=== PATIENT | female | born 1980 | race Caucasian/White ===

== ENCOUNTER 2018-06-24 13:59 | Inpatient (IN) | payer MEDICAID, OTHER ==
--- NOTE | 2018-06-24 14:17 | EDPHY ---
H & P Stated Complaint: D&C/yesterday @[facility] - Personal History LMP (Females 10-55): Unknown Current Tetanus/Diphtheria Vaccine: Yes - Medical/Surgical History Hx Asthma: No Hx Chronic Respiratory Disease: No Hx Diabetes: No Hx Cardiac Disease: No Hx Renal Disease: No Hx Cirrhosis: No Hx Alcoholism: No Other PMH: Denies - Social History Smoking Status: Never smoked <Ben Gomez A - Last Filed: 06/24/18 15:01> <Lefty Nichols S - Last Filed: 06/24/18 18:07> Time Seen by Provider: 06/24/18 14:17 Constitutional: Initial Vital Signs Temperature (C) 37.1 C 06/24/18 14:03 Heart Rate 62 06/24/18 14:03 Respiratory Rate 18 06/24/18 14:03 Blood Pressure 96/40 L 06/24/18 14:03 O2 Sat (%) 100 06/24/18 14:03 Allergies/Adverse Reactions: latex Allergy (Verified 06/24/18 14:06) Home Medications: Medication Instructions Recorded NK [No Known Home Meds] 06/24/18 Medical Decision Making - Diagnostics Imaging: Discussed imaging studies w/ call worker person Radiologist, I viewed and interpreted images myself <Ben Gomez - Last Filed: 06/24/18 15:01> - Diagnostics Imaging: Discussed imaging studies w/ call worker person Radiologist Consult/Admit Bed Type: Dr. Martin 0830 <Lefty Nichols S - Last Filed: 06/24/18 18:07> - Diagnostics Imaging Results: Imaging Impressions Chest/Thorax CTA 06/24/18 14:25 Impression: 1. Suboptimal opacification of the pulmonary artery without central or segmental pulmonary embolus. 2. Heterogeneous, partially calcified right thyroid nodule measuring 5.0 x 3.9 cm. This lesion exhibits mass effect on the trachea and esophagus and narrows the left brachiocephalic vein. Recommend fine needle aspiration to exclude malignancy. Findings and recommendations discussed with Dr. Nichols at 2765, 06/24/2018. ED Course/Re-evaluation: CHIEF COMPLAINT: Chest pain, dyspnea, recent D&E HISTORY OF PRESENT ILLNESS: The patient is a 37 y/o female arriving with her family member complaining of chest pain and difficulty breathing onset today. She underwent a dilation and evacuation procedure yesterday at [facility] for a spontaneous miscarriage. She was discharged home and last night around midnight became restless and complained of abdominal discomfort and hip pressure. She woke this morning with associated chest pain and took extra strength Tylenol with no alleviation. Throughout the day she's had associated difficulty breathing and feels globally weak. She's also had right calf pain. Her doctor advised her to come to the ED with concern for an embolus. She denies fever, headache, dizziness, difficulty with balance or unilateral weakness, vomiting, diarrhea, urinary complaints. She is typically healthy, no history of respiratory or cardiac diseases. REVIEW OF SYSTEMS: A comprehensive 10 system review of systems is otherwise negative aside from elements mentioned in the history of present illness and medical decision making. PHYSICAL EXAM: HR, BP, O2 Sat, RR. Temp noted General Appearance: Alert, well hydrated, appropriate, and non-toxic appearing. Head: Atraumatic without scalp tenderness or obvious injury Eyes: Pupils equal, round, reactive to light and accommodation, EOMI, no trauma , no injection. Nose: Atraumatic, no rhinorrhea, clear. Throat: Mucus membranes moist. Neck: Supple, nontender, no lymphadenopathy. Respiratory: No retractions, no distress, no wheezes, and no accessory muscle use. Lungs are clear to auscultation bilaterally. Cardiovascular: Regular rate and rhythm, no murmurs, rubs, or gallops. Good capillary refill all extremities. Gastrointestinal: Abdomen is soft, nontender, non-distended, no masses, no rebound, no guarding, no peritoneal signs. Musculoskeletal: Right calf tenderness. Normal active ROM of all extremities, atraumatic. Neurological: Alert, appropriate, and interactive. The patient has non-focal cranial nerves, motor, sensory, and cerebellar exam. Skin: No rashes, good turgor, no nodules on palpation. Past medical history: Denies Past surgical history: D&E for spontaneous miscarriage 06/23/18 Family history: Noncontributory Social history: Family at bedside. Lives in [place]. . DIAGNOSTICS/PROCEDURES/CRITICAL CARE TIME: Chest CTA: pending at shift change. The 12 lead EKG was interpreted by myself. Sinus mechanism, no ischemia, normal intervals. See hard copy and/or "tracemaster" electronic copy for interpretation. DIFFERENTIAL DIAGNOSIS: The differential diagnosis for the patient's chest pain included but was not limited to myocardial ischemia, pulmonary embolus, chest wall pain, pleural inflammation, and pulmonary infectious causes. MEDICAL DECISION MAKING: This is a healthy 37 y/o female who underwent a D&E for a spontaneous miscarriage yesterday and presents today with chest pain, dyspnea, hip pressure , and global weakness. She has right calf tenderness on exam. Concern for embolus. Plan for IV, labs, chest CTA. 1L IV NS and 324mg PO aspirin administered. Patient care signed out to Dr. Nichols at shift change pending labs and imaging results. (Ben Gomez) Other Provider: Care assumed at 3:[address] With plan to CT angiography of the chest discharge if negative. 1645: CTA negative per Dr. Guillen, does have right thyroid nodule that requires follow-up. Discussed with the patient and family. She says she is too weak to walk, but does have pain and has difficulty abducting her arm over her clavicle at the shoulder because of pain in her chest. Got her up to try and walk and stand at the side of bed and she is unstable. She has diffuse myalgias. CPK is pending. Toradol 15 mg IV with normal creatinine. Plan for admission for supportive care and further evaluation. Differential includes but not limited to post anesthesia weakness, myopathy, other neurologic. (Lefty Nichols) - Data Points Laboratory Results: Laboratory Results 06/24/18 15:08 06/24/18 15:08 06/24/18 06/24/18 06/24/18 15:15 15:12 15:08 WBC RBC Hgb POC Hgb 13.9 gm/dL gm/dL (12.6-16.3) Hct POC Hct 41 % % (38-47) MCV MCH MCHC RDW Plt Count MPV Neut % (Auto) Lymph % (Auto) [place] % (Auto) Eos % (Auto) Baso % (Auto) Nucleat RBC Rel Count Absolute Neuts (auto) Absolute Lymphs (auto) Absolute Monos (auto) Absolute Eos (auto) Absolute Basos (auto) Absolute Nucleated RBC Immature Gran % Immature Gran # POC Sodium 143 mEq/L mEq/L (135-145) Sodium POC Potassium 3.4 mEq/L mEq/L (3.3-5.0) Potassium POC Chloride 105 mEq/L mEq/L (97-110) Chloride Carbon Dioxide POC Total CO2 23 mEq/L mEq/L (22-31) Anion Gap POC BUN 10 mg/dL mg/dL (7-23) BUN Creatinine POC Creatinine 0.6 mg/dL mg/dL (0.6-1.0) Estimated GFR Glucose POC Glucose 84 mg/dL mg/dL (70-100) Calcium Creatine Kinase 120 IU/L IU/L (0-156) POC Troponin I 0.00 ng/mL ng/mL (0.00-0.08) NT-Pro-B Natriuret Pep 06/24/18 06/24/18 15:08 15:08 WBC 6.09 10^3/uL 10^3/uL (3.80-9.50) RBC 4.44 10^6/uL 10^6/uL (4.18-5.33) Hgb 14.1 g/dL g/dL (12.6-16.3) POC Hgb Hct 41.8 % % (38.0-47.0) POC Hct MCV 94.1 fL fL (81.5-99.8) MCH 31.8 pg pg (27.9-34.1) MCHC 33.7 g/dL g/dL (32.4-36.7) RDW 14.6 % % (11.5-15.2) Plt Count 148 10^3/uL L 10^3/uL (150-400) MPV 9.6 fL fL (8.7-11.7) Neut % (Auto) 61.6 % % (39.3-74.2) Lymph % (Auto) 29.6 % % (15.0-45.0) [place] % (Auto) 6.2 % % (4.5-13.0) Eos % (Auto) 1.3 % % (0.6-7.6) Baso % (Auto) 0.5 % % (0.3-1.7) Nucleat RBC Rel Count 0.0 % % (0.0-0.2) Absolute Neuts (auto) 3.75 10^3/uL 10^3/uL (1.70-6.50) Absolute Lymphs (auto) 1.80 10^3/uL 10^3/uL (1.00-3.00) Absolute Monos (auto) 0.38 10^3/uL 10^3/uL (0.30-0.80) Absolute Eos (auto) 0.08 10^3/uL 10^3/uL (0.03-0.40) Absolute Basos (auto) 0.03 10^3/uL 10^3/uL (0.02-0.10) Absolute Nucleated RBC 0.00 10^3/uL 10^3/uL (0-0.01) Immature Gran % 0.8 % % (0.0-1.1) Immature Gran # 0.05 10^3/uL 10^3/uL (0.00-0.10) POC Sodium Sodium 138 mEq/L mEq/L (135-145) POC Potassium Potassium 3.5 mEq/L mEq/L (3.5-5.2) POC Chloride Chloride 109 mEq/L mEq/L (97-110) Carbon Dioxide 23 mEq/l mEq/l (22-31) POC Total CO2 Anion Gap 6 mEq/L mEq/L (6-14) POC BUN BUN 13 mg/dL mg/dL (7-23) Creatinine 0.6 mg/dL mg/dL (0.6-1.0) POC Creatinine Estimated GFR > 60 Glucose 83 mg/dL mg/dL (70-100) POC Glucose Calcium 8.9 mg/dL mg/dL (8.5-10.4) Creatine Kinase POC Troponin I NT-Pro-B Natriuret Pep 123 pg/mL pg/mL (0-125) Medications Given: Discontinued Medications Aspirin (Aspirin) 324 mg PO EDNOW ONE Stop: 06/24/18 14:25 Last Admin: 06/24/18 14:49 Dose: 324 mg Sodium Chloride (Ns) 1,000 mls @ 0 mls/hr IV ONCE ONE; Wide Open PRN Reason: Protocol Stop: 06/24/18 14:25 Last Admin: 06/24/18 14:52 Dose: 1,000 mls Point of Care Test Results: Chemistry 06/24/18 06/24/18 15:15 15:12 POC Sodium 143 mEq/L mEq/L (135-145) POC Potassium 3.4 mEq/L mEq/L (3.3-5.0) POC Chloride 105 mEq/L mEq/L (97-110) POC Total CO2 23 mEq/L mEq/L (22-31) POC BUN 10 mg/dL mg/dL (7-23) POC Creatinine 0.6 mg/dL mg/dL (0.6-1.0) POC Glucose 84 mg/dL mg/dL (70-100) POC Troponin I 0.00 ng/mL ng/mL (0.00-0.08) ISTAT H&H 06/24/18 15:15 POC Hgb 13.9 gm/dL gm/dL (12.6-16.3) POC Hct 41 % % (38-47) Departure <Ben Gomez - Last Filed: 06/24/18 15:01> <Lefty Nichols - Last Filed: 06/24/18 18:07> - Departure Disposition: [facility] Inpatient Acute Clinical Impression: Chest pain, Muscle weakness Condition: Good Report Scribed for: Ben Gomez Report Scribed by: aMrilou Celis Date of Report: 06/24/18 Time of Report: 14:27 <Ben Gomez - Last Filed: 06/24/18 15:01>
[2018-06-24] MEDS ORDERED: NS 1,000 ML IV ONE (14:24)
[2018-06-24] MEDS ORDERED: ASPIRIN 81 MG CHEWABLE TAB PO ONE (14:24)
[2018-06-24] MEDS ORDERED: IOHEXOL 350mgI/ML (OMNIPAQUE) 150 ML BTL IV ONE (14:46)
--- NOTE | 2018-06-24 15:02 | CPEKG ---
Test Reason : OPEN Blood Pressure : / mmHG Vent. Rate : 059 BPM Atrial Rate : 059 BPM P-R Int : 160 ms QRS Dur : 092 ms QT Int : 436 ms P-R-T Axes : 054 070 034 degrees QTc Int : 432 ms Sinus rhythm Confirmed by Lefty Nichols ([id number]) on 06/24/2018 3:02:14 PM Referred By: Lefty Nichols Confirmed By:Lefty Nichols
[2018-06-24 15:23] LABS: PLATELET COUNT 148 10^3/uL (150-400)
[2018-06-24] MEDS ORDERED: KETOROLAC 30 MG/1 ML SDV IVP ONE (17:01)
[2018-06-24 17:06] LABS: CREATINE KINASE 120 IU/L (0-156)
[2018-06-24] MEDS ORDERED: KETOROLAC 15 MG/1 ML SDV ONE (18:55)
[2018-06-24] MEDS ORDERED: LORazepam 0.5 MG TAB PO PRN (18:57)
[2018-06-24] MEDS ORDERED: ONDANSETRON DISINTEGRATING 4 MG TAB PO PRN (18:57)
[2018-06-24] MEDS ORDERED: ONDANSETRON 4 MG/2 ML VIAL IVP PRN (18:57)
[2018-06-24] MEDS ORDERED: ACETAMINOPHEN 325 MG TAB PO PRN (18:57)
--- NOTE | 2018-06-24 19:01 | PDGENHP ---
History and Physical - Chief Complaint chest pain, shortness of breath - History of Present Illness 37yo F presents with shortness of breath, generalized weakness and inability to ambulate. She had a D+C for a spontaneous miscarriage yesterday at [facility]. This was done under LMA anesthesia although she is unsure what exact medications she received. She was discharged later in the morning in her normal state of health. She did some errands with her before returning home. Last night she developed pain in her hips/lower back and abdominal discomfort. She woke up this morning with intense chest pressure, shortness of breath, neck pain, and generalized weakness. She was having trouble walking due to the weakness. She called her physician who recommended she come in for evaluation. In the ED, she had a CTA of her chest which was negative for PE. She was unable to ambulate safely and is being admitted for further evaluation. She is currently having intense pain in her neck, left arm, and lower back. Case discussed with ED physician Lefty Nichols. History Information - Allergies/Home Medication List Allergies/Adverse Reactions: latex Allergy (Verified 06/24/18 14:06) Home Medications: Acetaminophen [Pain Reliever] 1,000 mg PO Q6H PRN 06/24/18 [Last Taken 06/24/18 0900] I have personally reviewed and updated: family history, medical history, social history, surgical history - Past Medical History no pertinent PMH - Surgical History Additional surgical history: D+C x2 - Family History Additional family history: No family history of adverse reactions to anesthesia - Social History Smoking Status: Never smoked Alcohol Use: None Drug Use: None Additional social history: Lives with . Review of Systems Review of Systems: ROS: 10pt was reviewed & negative except for what was stated in HPI & below Physical Exam Physical Exam: Temp Pulse Resp BP Pulse Ox 37.1 C 65 18 99/58 L 97 06/24/18 14:03 06/24/18 18:15 06/24/18 18:15 06/24/18 18:15 06/24/18 18:15 Constitutional: uncomfortable Eyes: PERRL, anicteric sclera Ears, Nose, Mouth, Throat: moist mucous membranes Cardiovascular: regular rate and rhythym, no murmur, rub, or gallop, No edema Respiratory: no respiratory distress, no rales or rhonchi, clear to auscultation Gastrointestinal: normoactive bowel sounds, soft, non-tender abdomen, no palpable masses Genitourinary: no bladder fullness, no bladder tenderness Skin: warm, normal color, no rashes or abrasions, no fluctuance, no induration, No mottled Neurologic: AAOx3, sensation intact bilaterally, CN II-XII Intact, other (5/5 strenght in RUE and LLE, difficult to assess strenght in LUE and RLE due to pain ) Psychiatric: interacting appropriately Lab Data & Imaging Review 06/24/18 15:08 06/24/18 15:08 WBC 6.09 10^3/uL (3.80-9.50) 06/24/18 15: RBC 4.44 10^6/uL (4.18-5.33) 06/24/18 15:08 Hgb 14.1 g/dL (12.6-16.3) 06/24/18 15:08 POC Hgb 13.9 gm/dL (12.6-16.3) 06/24/18 15:15 Hct 41.8 % (38.0-47.0) 06/24/18 15:08 POC Hct 41 % (38-47) 06/24/18 15: MCV 94.1 fL (81.5-99.8) 06/24/18 15:08 MCH 31.8 pg (27.9-34.1) 06/24/18 15:08 MCHC 33.7 g/dL (32.4-36.7) 06/24/18 15: RDW 14.6 % (11.5-15.2) 06/24/18 15:08 Plt Count 148 10^3/uL (150-400) L 06/24/18 15:08 MPV 9.6 fL (8.7-11.7) 06/24/18 15:08 Neut % (Auto) 61.6 % (39.3-74.2) 06/24/18 15:08 Lymph % (Auto) 29.6 % (15.0-45.0) 06/24/18 15:08 [place] % (Auto) 6.2 % (4.5-13.0) 06/24/18 15:08 Eos % (Auto) 1.3 % (0.6-7.6) 06/24/18 15:08 Baso % (Auto) 0.5 % (0.3-1.7) 06/24/18 15:08 Nucleat RBC Rel Count 0.0 % (0.0-0.2) 06/24/18 15:08 Absolute Neuts (auto) 3.75 10^3/uL (1.70-6.50) 06/24/18 15:08 Absolute Lymphs (auto) 1.80 10^3/uL (1.00-3.00) 06/24/18 15:08 Absolute Monos (auto) 0.38 10^3/uL (0.30-0.80) 06/24/18 15:08 Absolute Eos (auto) 0.08 10^3/uL (0.03-0.40) 06/24/18 15:08 Absolute Basos (auto) 0.03 10^3/uL (0.02-0.10) 06/24/18 15:08 Absolute Nucleated RBC 0.00 10^3/uL (0-0.01) 06/24/18 15:08 Immature Gran % 0.8 % (0.0-1.1) 06/24/18 15:08 Immature Gran # 0.05 10^3/uL (0.00-0.10) 06/24/18 15:08 POC Sodium 143 mEq/L (135-145) 06/24/18 15:15 Sodium 138 mEq/L (135-145) 06/24/18 15:08 POC Potassium 3.4 mEq/L (3.3-5.0) 06/24/18 15:15 Potassium 3.5 mEq/L (3.5-5.2) 06/24/18 15:08 POC Chloride 105 mEq/L (97-110) 06/24/18 15:15 Chloride 109 mEq/L (97-110) 06/24/18 15:08 Carbon Dioxide 23 mEq/l (22-31) 06/24/18 15:08 POC Total CO2 23 mEq/L (22-31) 06/24/18 15:15 Anion Gap 6 mEq/L (6-14) 06/24/18 15:08 POC BUN 10 mg/dL (7-23) 06/24/18 15:15 BUN 13 mg/dL (7-23) 06/24/18 15:08 Creatinine 0.6 mg/dL (0.6-1.0) 06/24/18 15:08 POC Creatinine 0.6 mg/dL (0.6-1.0) 06/24/18 15:15 Estimated GFR > 60 06/24/18 15:08 Glucose 83 mg/dL (70-100) 06/24/18 15:08 POC Glucose 84 mg/dL (70-100) 06/24/18 15:15 Calcium 8.9 mg/dL (8.5-10.4) 06/24/18 15:08 Creatine Kinase 120 IU/L (0-156) 06/24/18 15:08 POC Troponin I 0.00 ng/mL (0.00-0.08) 06/24/18 15:12 NT-Pro-B Natriuret Pep 123 pg/mL (0-125) 06/24/18 15:08 EKG additional interpertation: ECG: sinus rhythm, RBBB (no prior for comparison ) otherwise no right heart strain, no acute ischemic changes (interp by me) Assessment & Plan Assessment: 37yo F presents with shortness of breath, generalized weakness. She is being admitted due to inability to safely ambulate. Plan: 1. Weakness: Exam difficult and I'm not entirely convinced she has true weakness. I think some of her weakness is actually caused by pain in her neck and lower back. These symptoms do not fit a neurologic/anatomic distribution. She seems to have normal sensation and reflexes. Query whether adverse reaction to recent anesthesia. Alternative but less likely would be rheumatologic/ vasculitic. Also on differential is conversion disorder given the stress of recent spontaneous miscarriage. - I have ordered MRI of cervical and lumbar spine - Consult neurology in AM - Check ESR/CRP 2. Gait instability: Seems to be related to above. - PT/OT 3. Chest pressure, dyspnea: Unclear etiology. Not hypoxic. CTA without PE or lung parenchymal disease. 4. Right sided thryoid nodule: Quite large measuring up to 5cm. Some mass effect on trachea. - Checking TSH - Needs close outpatient follow up for needle aspiration. Consider as inpatient. VTE ppx: SCDs Code: full Diet: regular Dispo: Admit under observation
[2018-06-25] MEDS: OXYCODONE/APAP 5/325 TAB PO PRN ×3 (08:18→18:40)
--- NOTE | 2018-06-25 08:44 | HOSPPROG ---
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 Will discuss further with Dr. Acosta #Superior mediastinal mass: trachea compression. Dr. Patterson reviewed images and no airway compromise -Plan for CT-guided biopsy -check LDH, AFP -plan for CT-guided bx #Spontaneous miscarriage, s/p D&C yesterday. Pain control with Toradol, Percocet #DVT ppx: ambulatory #Disp: inpatient admission for uncontrolled pain, cont Percocet, IV Toradol. If clinically improved, can DC tomorrow and do bx on Wednesday Subjective: anterior chest wall, hip pain persistent Objective: Vital Signs Temp Pulse Resp BP Pulse Ox 36.9 C 56 L 16 130/65 H 99 06/25/18 04:58 06/25/18 04:58 06/25/18 04:58 06/25/18 04:58 06/25/18 04:58 06/24/18 06/25/18 06/26/18 05:59 05:59 05:59 Intake Total 1520 Output Total 500 Balance 1520 -500 - Time Spent With Patient Time Spent with Patient: greater than 35 minutes Time Spent with Patient: Greater than 35 minutes spent on this patients care, greater than 50% of time spent counseling, educating, and coordinating care regarding the above mentioned plan. - Physical Exam Constitutional: not in pain, other (appears fatigued) Eyes: PERRL Ears, Nose, Mouth, Throat: moist mucous membranes Cardiovascular: regular rate and rhythym Respiratory: no respiratory distress Gastrointestinal: normoactive bowel sounds Genitourinary: no bladder fullness Skin: warm Musculoskeletal: generalized weakness Neurologic: AAOx3, sensation intact bilaterally, CN II-XII Intact, No numbness, No pronator drift, No facial droop Psychiatric: interacting appropriately, depressed, flat affect ICD10 Worksheet Patient Problems: Problems Problem Status Onset Chest pain Acute Muscle weakness Acute
--- NOTE | 2018-06-25 09:56 | ASMTCMCOM ---
CM Note CM Note Notes: Pt is a 37 y/o female presenting to the ED one day after a D and C at [place], due to a spontaneous miscarriage. She c/o of chest pain, difficulty breathing and weakness with difficulty walking.Pprior to coming to the ED she lived independently with her ; she now has PT/OT evals ordered due to her difficulty in walking. CM to check for recommendations from PT/OT evals. D/C Plan: TBD Date Signed: 06/25/2018 09:55 AM Electronically Signed By:Akosua Zamorano
[2018-06-25 10:13] LABS: CREATINE KINASE 86 IU/L (0-156)
[2018-06-25] MEDS ORDERED: GADOBUTROL 10 ML VIAL IVP ONE (12:01)
--- NOTE | 2018-06-25 13:59 | GCON ---
[f rep st] CONSULTATION NEUROLOGIC CONSULTATION REFERRING PHYSICIAN: Vasu Martin MD HISTORY: The patient is a 37-year-old woman who I am asked to see in neurologic consultation regardi ng unexplained pain and weakness. She came to the hospital with shortness of breath yesterday. The day before she had a D and C for spontaneous miscarriage at [facility] and received anesthesia, but exact details we do not know. She was discharged and reportedly stable and even went out to the [facility] in the evening and returned home, but was staying with family. She started to complain of abdomina l discomfort and hip and back pain and some pain in her left shoulder. When she got up yesterday mor farhana, there was prominent chest pain and shortness of breath and neck pain and this generalized weakn ess. She was having trouble walking. She was advised to come to the hospital. They did workup for pulmonary embolism which was negative. Because she was not felt to be safe to go home with ambulatio n and unexplained symptoms, she was admitted. She continues to complain of intense pain throughout h er entire body and says she cannot move very well because of pain and weakness. There is more pain i n the left shoulder than the right. Hips are painful and virtually all of her body is noted to have aching pains. Superficial touch is not particularly sensitive, although my exam suggested otherwise. She has never had this phenomenon before. She has had a previous miscarriage, but did not have the g eneral anesthesia reported. There is not a family history of anesthetic reactions or nerve or muscle diseases that they are aware. She has otherwise been a healthy individual with no history of blood clots. No smoking or alcohol. She is . MEDICATIONS: Current medication is oxycodone as needed, lorazepam as needed, Tylenol, and Zofran. O nly medicine at home is Tylenol. ALLERGIES: No drug allergies, but history of latex allergy. PHYSICAL EXAM: The physical exam has been stable during hospitalization with no fevers. Blood press ure 130/65, pulse 56, respirations 16, current temperature 36.9. The patient is lying in the bed and appears uncomfortable. She does not tend to speak because of limited Greek and her family member is translating for her. She has a very depressed affect. She can follow commands. She does not see m confused. Pupils are 3 mm and reactive. Extraocular movements intact. Normal facial sensation an d movement. Any movement of any part of the body creates a reaction of pain, but particularly around her left shoulder and in her hips. This precludes a reliable motor examination, but she demonstrate s at least partial antigravity strength in all the extremities and then variable amounts of give way with testing. She does move the right arm better than the left. Reflexes are 2 to 3+ and symmetric, but no Babinski's sign is evident. Sensation seems to be preserved. LABORATORY DATA: I have reviewed the laboratory studies which reveal a normal white count, normal se dimentation rate, trivial elevation of the CRP. Otherwise normal electrolytes. CK of 120. IMPRESSION: Total unit time of 55 minutes. The patient has an unexplained diffuse pain and weakness syndrome following dilation and curettage and general anesthesia. I do not think I can attribute th is to a specific anesthetic complication. I do not think she has a probable acute myositis or rhabdo myolysis with a normal CK, but we have not seen anything so far to explain the symptoms. This does n ot suggest a brain or spinal cord or nerve root problem the way it presented with such diffuse aching pains in joints and muscles. Therefore, I would favor a systemic condition of some type, for which I do not yet have an explanation, and laboratory studies are all either normal or nonspecific. I loc l go ahead and repeat the CK level just to make sure there is not developing rhabdomyolysis. She is scheduled for imaging to include the cervical and lumbar spine to rule out any occult pathology which is reasonable. I explained to them I do not know what is causing this, but I do not think it is an irreversible process and we will also consider the possibility of conversion given the severe stress of which she has gone through, but we do not have any way to know for sure and must rule out other oc cult pathology. At this point, I would just continue the supportive care unless something changes. /[id number]/MODL
[2018-06-25] MEDS ORDERED: KETOROLAC 30 MG/1 ML SDV IVP ONE (14:52)
[2018-06-25 18:08] LABS: INR 1.09 (0.83-1.16); PROTIME(PATIENT) 14.3 SEC (12.0-15.0)
[2018-06-25] MEDS: KETOROLAC 15 MG/1 ML SDV IVP PRN (21:28)
--- NOTE | 2018-06-26 09:27 | NEUROPROG ---
Assessment: Total unit time of 25 min. The patient has had resolution of most of her pain and weakness although not completely back to normal. I am not currently suspicious for a primary neurologic disease I do not think this was directly related to anesthesia. Exact source is uncertain but a temporary inflammatory process seems likely. We talked about whether stress could manifest with this. Although that is possible, it is somewhat unusual overall. I do not know if it is incidental or related in terms of this mediastinal mass but that will be biopsied soon for further clarification. I think it is safe for her to be discharged home and discussed this with Dr. Ashraf. She does not need neurologic follow-up unless further questions arise but perhaps outpatient rheumatologic evaluation would be appropriate if she has recurrent episodes of unexplained joint and muscle pain. Subjective: Patient feels significantly better this morning with resolution of most of her pain. She is not feeling significantly weak at this point and is able to ambulate safely. Objective: Vital Signs Temp Pulse Resp BP Pulse Ox 36.7 C 58 L 16 113/57 L 96 06/26/18 07:58 06/26/18 07:58 06/26/18 07:58 06/26/18 07:58 06/26/18 07:58 06/25/18 06/26/18 06/27/18 05:59 05:59 05:59 Intake Total 1520 450 Output Total 2150 Balance 1520 -1700 PT 14.3 SEC (12.0-15.0) 06/25/18 17:34 INR 1.09 (0.83-1.16) 06/25/18 17:34 Much improved strength and diminished pain on testing. The repeat CK level is normal. Imaging of the cervical and lumbar spine do not reveal any explanation for the symptoms. She continues to have evidence of a lesion in the mediastinum of uncertain source. Allergies/Adverse Reactions: latex Allergy (Verified 06/24/18 14:06)
--- NOTE | 2018-06-26 09:38 | PDMN ---
Medical Necessity Medical necessity: Pt meets IP criteria as of 06/25/18 per MD and MARCEL MG-N ( Neurology [facility]); los > 2 mn for ongoing tx and management of acute weakness with superior mediastinal mass with trachea compression noted on imaging as well as spontaneous miscarriage s/p D&C; requiring neurology consultation, further workup, pain control with IV analgesics, emotional support, and PT/OT.
[2018-06-26] MEDS: KETOROLAC 15 MG/1 ML SDV IVP PRN (10:10)
[2018-06-26] MEDS ORDERED: LACTULOSE 20 GM/30 ML UDCUP PO PRN (11:43)
[2018-06-26] MEDS ORDERED: BISACODYL 10 MG SUPP PR PRN (11:43)
[2018-06-26] MEDS ORDERED: POLYETHYLENE GLYCOL 3350 17 GM PKT PO PRN (11:43)
[2018-06-26] MEDS ORDERED: MAGNESIUM HYDROXIDE 30 ML UDCUP PO PRN (11:43)
[2018-06-26] MEDS ORDERED: SENNOSIDES/DOCUSATE SODIUM TAB PO SCH (12:15)
--- NOTE | 2018-06-26 14:22 | ASMTLACE ---
LACE Length of stay for Answers: Less than 1 day current admission # of Emergency department Answers: 1-2 visits in the last 6 months Score: 1 Date Signed: 06/26/2018 02:21 PM Electronically Signed By:Chante Graf RN
--- NOTE | 2018-06-26 14:25 | ASMTCMCOM ---
CM Note CM Note Notes: Patient plan of care reviewed in rounds. 37 year old female s/p recent D&C admitted with weakness. Found incidentally to have thyroid nodule and mediastinal mass. To undergo further diagnostics as an outpatient. No identified needs at this time. CM available should needs arise. Plan: Home with good support and follow up. Date Signed: 06/26/2018 02:24 PM Electronically Signed By:Chante Graf RN
[2018-06-26 15:00] VITALS: BP 112/66
--- NOTE | 2018-06-26 21:07 | GDS ---
[f rep st] DISCHARGE SUMMARY DISCHARGE DIAGNOSES: 1. Acute atypical chest pain. 2. Weakness. 3. New mediastinal mass. 4. Splenomegaly. 5. Recent miscarriage and D and C. CONSULTATIONS: 1. Oncology. 2. Neurology. HISTORY OF PRESENT ILLNESS: A 37-year-old female with no significant past medical history presenting with shortness of breath, generalized weakness, and an inability to ambulate. She had a D and C for a spontaneous miscarriage at [facility]. This was done under LMA anesthesia. She was discharged in her normal state of health, did some errands before returning home. That night she developed aching pain in her hips, lower back, and lower abdominal region. She woke up day of admission with intense chest pressure, shortness of breath, neck pain, generalized weakness, said she could not walk due to the decreased strength. HOSPITAL COURSE BY PROBLEM: 1. Weakness: Suspect this may be somatic symptom related to stress and grievance with recent miscarriage. Dr. Acosta with Neurology evaluated, and there were no focal neuro deficits. Cervical and lumbar spine showed some mild degenerative disk disease. Ambulating without issue today. 2. New superior mediastinal mass, splenomegaly: differential includes germ cell tumor, thymoma, lymphoma. LDH is negative. AFP is elevated, which could be related to recent . I discussed the case with Dr. Salamanca, who consulted here. These labs will be repeated. CT-guided biopsy tomorrow at 11: 30. 3. Thyroid nodule: TSH is normal. 4. Chest pressure: may be from mass. CTA negative for PE. DISPOSITION: Patient is stable for discharge home with her family. FOLLOW UP: 1. Interventional Radiology for CT-guided biopsy 06/[address] Salamanca, Wednesday, June 29. PHYSICAL EXAMINATION TODAY: VITAL SIGNS: Temperature 36.7, blood pressure 113/ 57, heart rate in the 50s, respirations 16, 96% on room air. GENERAL: She is smiling, appears much brighter today, walking around the room. HEENT: PERRLA. Moist mucous membranes. CV: Bradycardic but regular. LUNGS: Clear. ABDOMEN: Soft, nontender, nondistended. : No Gabriel. MUSCULOSKELETAL: Increased muscle strength. Ambulation today. NEURO: 2 through 12 intact. PSYCH: Alert and oriented x3. TIME SPENT ON DISCHARGE: Greater than 30 minutes at bedside counseling patient and family, discussing case with Dr. Salamanca and Dr. Acosta. /[id number]/MODL MTDLamont
--- NOTE | 2018-06-26 21:12 | GCON ---
[f rep st] CONSULTATION MEDICAL ONCOLOGY CONSULTATION DATE OF CONSULTATION: 06/26/2018 REFERRING PHYSICIAN: Maria Ashraf MD REASON FOR CONSULTATION: Further evaluation and treatment of mediastinal mass. RECOMMENDATIONS: 1. Agree with mediastinal mass biopsy as you are planning on doing tomorrow. 2. Will need to follow patient as an outpatient on Wednesday, the June, to review h er biopsy results as well as to initiate further workup. 3. Will need to recheck her beta hCG and alpha-fetoprotein on Wednesday when she comes in to [facility] whether they are following appropriately or not. 4. Further workup and treatment will depend on tissue type. ASSESSMENT: This 37-year-old Citizen [place] woman is seen today because of a mediastinal mass. She present ed to [facility] with total body pain and weakness on the June. The day before, she had a spontaneous miscarriage at 18 weeks and had a dilation and curettage at [facility]. This was done under LMA anesthesia. She is feeling better today and is sheela g to likely be discharged, but as part of her workup when she came into the hospital, she had a CT an giogram of her chest, which revealed a nodule in the right thyroid but also a mediastinal mass that i s approximately 5.0 x 3.9 cm. My review of the images also makes me question whether there is enlarge ment of her spleen with some heterogeneity noted. She has not had a full evaluation of her abdomen or pelvis at this time with CAT scans. Her alpha-fetoprotein was elevated at 291, and her beta hCG was elevated at 781.14. These are single values though, and we do not have any indication of trends at th is point. She does tell me that for the past year or two, she has had a hot sensation in her chest, where she f eels like she needs to bring something up but is unable to do so. She has also noticed a small nodule in her left neck, which she says has been present since she was a teenager. She has had no fevers, n ight sweats, or unexpected weight loss. She has noticed no other masses or lymphadenopathy. Her differential diagnosis for this mass is fairly broad and will include things such as thyroid carc inoma, mediastinal lymphoma, or Hodgkin disease, or a mediastinal germ cell tumor. A thymoma is less likely. The most important thing will be to get tissue to help direct further appropriate workup and directed treatment. Most malignancies in this area can be treated with curative intent, and hopefully that will be the case this time. When she comes in to see me on Wednesday, we will repeat her beta h CG and her alpha-fetoprotein to see if they are falling appropriately after . HISTORY OF PRESENT ILLNESS: Please see assessment. PAST MEDICAL HISTORY: Essentially otherwise unremarkable. PAST SURGICAL HISTORY: Remarkable for D and C x2. She had a previous miscarriage a few years ago. SOCIAL HISTORY: She does not smoke or use alcohol. She lives with her , and she speaks both s ome Ethiopian and [place] is her primary language. FAMILY HISTORY: There is no family history of malignancy of which she is aware. REVIEW OF SYSTEMS: Remarkable for the above-mentioned globus sensation with swallowing. She has had no B symptoms. She reports no nausea or vomiting or change in bowel habits. She has had no swelling i n an arm or leg. She has noticed no palpable adenopathy. 10-system review is otherwise unremarkable. PHYSICAL EXAMINATION: GENERAL: Reveals an alert white female in no acute distress. She appears anxio us. HEENT: Unremarkable. NECK: Reveals some shotty lymphadenopathy in her left neck, and there is a m ass palpable at the base of her neck anteriorly on the right that corresponds to her thyroid nodule. LUNGS: Clear on auscultation. CARDIAC: Shows a regular rate and rhythm without murmurs or extra sound s. ABDOMINAL: Shows spleen tip palpable approximately 4 cm below left costal margin. Her liver span i s normal. She has normal bowel sounds. No ascites is noted. LOWER EXTREMITIES: Show no significant ed gennaro. PERIPHERAL LYMPH NODES: Show no palpable adenopathy in the axilla or groin bilaterally. SKIN: Sh ows some minimally dilated veins over her anterior chest. LABORATORY EXAM: Shows a white count of 6.09 with a hemoglobin of 14.1 and a platelet count of 148,0 00. Her alpha-fetoprotein tumor marker is 291, and her quantitative beta hCG is 781.14. Both of those labs were drawn on the June. Her LDH is . Her creatinine is normal at 0. 6. Her potassium is normal at 3.4, and her sodium was normal at 143. Thank you very much for allowing us to participate in the workup and care of this pleasant woman. Maru aguilar forward to assisting with her management. /[id number]/MODL
== END 2018-06-26 15:31 | disposition home or self-care (01) | DRG 566 ==
LOC: F1N 19:28 → OBSVTOIN 06-25 17:01
PROVIDERS: ADMIT Internal Medicine; ATTEND Internal Medicine
DX: O99.89 Other specified diseases and conditions complicating pregnancy, childbirth and the puerperium (principal); R07.89 Other chest pain; R53.1 Weakness; J98.59 Other diseases of mediastinum, not elsewhere classified; E04.1 Nontoxic single thyroid nodule; R16.1 Splenomegaly, not elsewhere classified
CPT/HCPCS: 82435-PO; 82565-PO; 82947-PO; 84132-PO; 84295-PO; 84484-ER; 84520-PO; 85014-ER; 96374; 97110-GP; 97116-GP; 97162-GP; 97165-GO; A9585; G0378; J1885; J2270; Q9967

== ENCOUNTER 2018-06-27 09:50 | Day surgery (SDC) | payer MEDICAID ==
[2018-06-27] MEDS ORDERED: NALOXONE HCL 0.4 MG/ML INJ IVP PRN (09:53)
[2018-06-27] MEDS ORDERED: FLUMAZENIL 0.5 MG/5 ML MDV IVP PRN (09:53)
[2018-06-27] MEDS ORDERED: MIDAZOLAM 2 MG/2 ML VIAL IVP PRN (09:53)
[2018-06-27] MEDS ORDERED: fentaNYL 100 MCG/2 ML INJ IVP PRN (09:53)
[2018-06-27] MEDS ORDERED: NS 1,000 ML IV SCH (10:00)
[2018-06-27] MEDS ORDERED: NALOXONE HCL 0.4 MG/ML INJ ONE (10:01)
[2018-06-27] MEDS ORDERED: fentaNYL 100 MCG/2 ML INJ ONE (10:02)
[2018-06-27] MEDS ORDERED: FLUMAZENIL 0.5 MG/5 ML MDV IVP ONE (10:02)
[2018-06-27] MEDS ORDERED: MIDAZOLAM 2 MG/2 ML VIAL ONE (10:02)
[2018-06-27] MEDS ORDERED: LIDOCAINE 1% 300 MG/30 ML SDV ONE (11:06)
[2018-06-27] MEDS ORDERED: ACETAMINOPHEN 325 MG TAB PO PRN (12:28)
[2018-06-27] MEDS ORDERED: ONDANSETRON 4 MG/2 ML VIAL IVP PRN (12:28)
--- NOTE | 2018-06-27 12:29 | PDPROPOC ---
Sedation Plan of Care ASA Classification: ASA 2 Mallampati Score: Class 2 Mallampati Reference Image:
--- NOTE | 2018-06-27 12:29 | PDRADPN ---
Radiology Procedure Note Date of Procedure: 06/27/18 Radiologist: Sara Guillen Anesthesia: IV Sedation Pre-op Diagnosis: mediastinal mass Post-op Diagnosis: same Procedure: CT guided biopsy Inf/Abcess present in the surg proc area at time of surgery?: No
[2018-06-27 15:31] VITALS: BP 114/63
== END 2018-06-27 13:30 | disposition home or self-care (01) ==
LOC: FIMAGING 09:50
PROVIDERS: ATTEND Internal Medicine
DX: R22.2 Localized swelling, mass and lump, trunk (principal)
CPT/HCPCS: J2250; J2310; J3010

== ENCOUNTER 2018-08-26 05:34 | Observation (INO) | payer MEDICAID ==
[2018-08-26] MEDS ORDERED: LR 1,000 ML IV ONE (06:08)
--- NOTE | 2018-08-26 06:55 | PDANEPAE ---
ANE History of Present Illness substernal mass ANE Past Medical History - Cardiovascular History Hx Hypertension: No Hx Arrhythmias: No Hx Chest Pain: No Hx Coronary Artery / Peripheral Vascular Disease: No Hx CHF / Valvular Disease: No Hx Palpitations: No - Pulmonary History Hx COPD: No Hx Asthma/Reactive Airway Disease: No Hx Recent Upper Respiratory Infection: No Hx Oxygen in Use at Home: No Hx Sleep Apnea: No Sleep Apnea Screening Result - Last Documented: Negative - Neurologic History Hx Cerebrovascular Accident: No Hx Seizures: No Hx Dementia: No - Endocrine History Hx Diabetes: No Hypothyroid: No Hyperthyroid: No Endocrine History Comment: thyroid mass 5*4cm right tracheal deviation - Renal History Hx Renal Disorders: No - Liver History Hx Hepatic Disorders: No - Neurological & Psychiatric Hx Hx Neurological and Psychiatric Disorders: Yes Neurological / Psychiatric History Comment: depression with recent issues - Cancer History Hx Cancer: No - Congenital Disorder History Hx Congenital Disorders: No - GI History GERD: no Hx Gastrointestinal Disorders: No - Other Health History Other Health History: none - Chronic Pain History Chronic Pain: No - Surgical History Prior Surgeries: d&c 2014 ANE Review of Systems Review of systems is: negative Review of Systems: - Exercise capacity METS (RN): 4 METS ANE Patient History - Allergies Allergies/Adverse Reactions: latex Allergy (Verified 08/12/18 16:52) - Home Medications Home medications: home medication list seen and reviewed Home Medications: NK [No Known Home Meds] 08/12/18 [Last Taken Unknown] - NPO status NPO Status: no food or drink >8 hours NPO Since - Liquids (Date): 08/25/18 NPO Since - Liquids (Time): 21:00 NPO Since - Solids (Date): 08/25/18 NPO Since - Solids (Time): 21:00 - Anes Hx Anes Hx: slow to awaken from anesthesia - Smoking Hx Smoking Status: Never smoked Marijuana use: No - Alcohol Use Alcohol Use: None - Family Anes Hx Family Hx Anesthesia Complications: none ANE Labs/Vital Signs - Vital Signs Blood Pressure: 125/70 Heart Rate: 86 Respiratory Rate: 23 O2 Sat (%): 99 Height: 172.72 cm Weight: 58.967 kg ANE Physical Exam - Airway Neck exam: FROM Mallampati Score: Class 2 Mouth exam: normal dental/mouth exam - Pulmonary Pulmonary: no respiratory distress, clear to auscultation - Cardiovascular Cardiovascular: regular rate and rhythym, no murmur, rub, or gallop - ASA Status ASA Status: II ANE Anesthesia Plan Anesthesia Plan: general endotracheal anesthesia
[2018-08-26] MEDS ORDERED: MIDAZOLAM 2 MG/2 ML VIAL IVP ONE (06:57)
[2018-08-26] MEDS ORDERED: fentaNYL 250 MCG/5 ML INJ ONE (07:02)
[2018-08-26] MEDS ORDERED: PROPOFOL/EMULSION 500 MG/50 ML BOTTLE IV ONE (07:02)
[2018-08-26] MEDS ORDERED: LIDOCAINE HCL 160 MG/4 ML LTA KIT TP ONE (07:03)
--- NOTE | 2018-08-26 07:08 | PDHPUP ---
History & Physical Update H&P update statement: This history and physical update is based on an assessment of the patient which was completed after admission or registration (within 24 hours), but prior to the surgery/procedure. H&P update: H&P reviewed & patient examined, no change in patient's condition since H&P completed
--- NOTE | 2018-08-26 07:10 | POSTOPPROG ---
Post Op Note Date of Operation: 08/26/18 Surgeon: Nathan Bone Plumbing Instructor: Dr. Dean Field Anesthesiologist: Dr. Montgomery Anesthesia: GET(General Endotracheal) Pre-op Diagnosis: Toxic multinodular goiter Post-op Diagnosis: same Procedure: Total thyroidectomy Findings: Nodular substernal goiter Inf/Abcess present in the surg proc area at time of surgery?: No EBL: Minimal Complications: no immediate Specimen(s): thyroid gland
[2018-08-26] MEDS ORDERED: BUPIVACAINE 0.5% 30 ML SDV ONE (07:11)
[2018-08-26] MEDS ORDERED: CEFAZOLIN 2 GM/DEXTROSE/100 ML BAG IV ONE (07:14)
[2018-08-26] MEDS ORDERED: DEXMEDETOMIDINE HCL 200 MCG in NS 50 ML IV ONE (07:30)
[2018-08-26] MEDS ORDERED: DEXAMETHASONE 4 MG/ML VIAL ONE (08:01)
--- NOTE | 2018-08-26 08:14 | POSTANESTH ---
Post Anesthetic Evaluation Cardiovascular Status: Normal, Stable Respiratory Status: Normal, Stable Level of Consciousness/Mental Status: Can Participate in Eval Pain Control: Adequate, Prn Tx Ordered Nausea/Vomiting Control: Adequate, Prn Tx Ordered Complications Possibly Related to Anesthesia: None Noted
[2018-08-26] MEDS ORDERED: NALOXONE HCL 0.4 MG/ML INJ IVP PRN (09:40)
[2018-08-26] MEDS ORDERED: LR 500 ML IV PRN (09:40)
[2018-08-26] MEDS ORDERED: ALBUTEROL 3 ML DEYVIAL IH PRN (09:40)
[2018-08-26] MEDS ORDERED: PROMETHAZINE HCL 25 MG/ML INJ IVP PRN (09:40)
[2018-08-26] MEDS ORDERED: fentaNYL 100 MCG/2 ML INJ IVP PRN (09:40)
[2018-08-26] MEDS ORDERED: HYDROCODONE/APAP 5/325 TAB PO PRN (09:41)
[2018-08-26] MEDS ORDERED: TEMAZEPAM 15 MG CAP PO PRN (09:41)
[2018-08-26] MEDS ORDERED: METOCLOPRAMIDE 10 MG/2 ML VIAL IVP PRN (09:41)
[2018-08-26] MEDS ORDERED: ONDANSETRON 4 MG/2 ML VIAL IVP PRN (09:41)
[2018-08-26] MEDS ORDERED: HYDROmorphONE/DILAUDID 1 MG/ML INJ IVP PRN (09:41)
[2018-08-26] MEDS ORDERED: ONDANSETRON 4 MG/2 ML VIAL ONE ×2 (09:45→10:46)
[2018-08-26] MEDS: KETOROLAC 15 MG/1 ML SDV IVP SCH ×2 (12:38→19:20)
--- NOTE | 2018-08-26 13:37 | GOP ---
[f rep st] OPERATIVE REPORT DATE OF OPERATION: 08/26/2018 SURGEON: Nathan Bone MD SHIPPING AND RECEIVING MATERIAL HANDLER: Dean Field MD ANESTHESIA: General. ANESTHESIOLOGIST: Israel Montgomeyr MD. PREOPERATIVE DIAGNOSIS: Substernal goiter. POSTOPERATIVE DIAGNOSIS: Substernal goiter. PROCEDURE PERFORMED: Substernal thyroidectomy with thymectomy. FINDINGS: See below. INDICATIONS: 38-year-old female with a large substernal goiter coursing deep into the mediastinum beneath her great vessels. She is undergoing a total thyroidectomy at this time. Risks and benefits were explained including but not limited to bleeding, infection, differential diagnosis, recurrent laryngeal nerve injury, hypoparathyroidism, permanent hypothyroidism (given the options of beba versus total thyroidectomy), and additional intervention pending pathologic evaluation. The patient has opted to proceed with total thyroidectomy to prevent future surgical intervention. DESCRIPTION OF PROCEDURE: General anesthesia was induced. The neck was pre- injected with 0.5% Marcaine with epinephrine. A low collar incision was created. The platysma was divided. Subplatysmal skin flaps were created to the level of the cricothyroid membrane, sternocleidomastoid muscles, as well as clavicles. The midline strap muscles were divided centrally. The muscle was easily from the large goitrous mass which was immediately present within the lower neck cavity bilaterally crossing the midline. The left thyroid lobe was initially dissected out. This lobe was clinically normal in appearance. A normal-appearing lower pole parathyroid gland was noted as was upper pole. The large recurrent laryngeal nerve was identified coursing into the cricothyroid muscle, which was preserved throughout the operative dissection. The contralateral neck was subsequently dissected out. The large goitrous mass was initially dissected centrally above the sternal notch. The pseudo capsule was able to be opened, allowing for entrance around the true mediastinal thyroidal extension. Using blunt dissection, the gland was able to be elevated up into the operative field. The gland coursed posterior to the innominate artery terminating around the aortic arch. The tissues peeled away nicely from the central vasculature and the dominant mediastinal mass was elevated up into the operative field; this was hanging by a small pedicle from the right lower pole of the thyroid gland. There was an additional dominant nodule arising from the lower pole thyroid gland that was subsequently dissected out as well. The remaining right neck dissection was completed. The right recurrent laryngeal nerve was identified within the thoracic inlet and followed towards the cricothyroid musculature. Normal upper and lower pole parathyroid glands were identified, and away from the thyroid gland. At this point, the upper and lower pole vascular pedicles were circumferentially encompassed and divided with the ultrasonic dissector. The gland was able to be elevated from lateral to medial, incorporating the nodular lower pole thyroid component. A miniscule amount of thyroid tissue was left overlying the nerve muscle junction as the upper and lower pole vascular pedicles were . The diminutive isthmus was separate away from the trachea, and then attention was directed to the contralateral neck. Similarly, the thyroid gland was peeled from lateral to medial. After circumferentially encompassing the upper lower pole vascular pedicles, the parathyroid glands were from the gland and preserved intact. The recurrent laryngeal nerve was also preserved intact. The gland was removed from the neck, tagged for orientation, and sent for permanent specimen processing. The mediastinum was further inspected. A small area of bleeding was noted coming from a suspect thyroid Lisa artery. This was controlled with a solitary hemoclip. A portion of dominant nodular thymic tissue was still present within the central mediastinum. This was further dissected down toward the subclavian vasculature and divided intact and sent as a separate specimen. No suspicious lateral neck adenopathy was noted bilaterally. The parathyroid and nerves were all confirmed intact. Hemostasis was assured. Jayy was placed throughout the central neck cavity. The defect was closed in layers with absorbable sutures followed by Dermabond. The patient was extubated in the operating room and taken to recovery uneventfully. /[id number]/MODL MTDD
[2018-08-26] MEDS: ACETAMINOPHEN 325 MG TAB PO PRN ×2 (15:19→21:32)
[2018-08-27] MEDS: KETOROLAC 15 MG/1 ML SDV IVP SCH ×4 (00:11→07:29)
[2018-08-27] MEDS ORDERED: LEVOTHYROXINE 100 MCG TAB PO SCH (06:00)
[2018-08-27 07:19] VITALS: BP 108/50
[2018-08-27] MEDS ORDERED: CALCIUM CARBONATE 500 MG CHEWABLE TAB PO SCH (09:00)
--- NOTE | 2018-08-27 09:09 | GDS ---
[f rep st] DISCHARGE SUMMARY REASON FOR ADMISSION: Substernal goiter. HOSPITAL COURSE: 38-year-old female admitted with a massive substernal goiter. She underwent a total thyroidectomy. She had a benign postoperative course. She was discharged to home the following morning in good condition, tolerating a regular diet. Postop calcium was 7.9. She was encouraged to continue with Tums 1 tablet 3 times a day until office followup at which point calcium level will be repeated. She was given prescriptions for Synthroid 100 mcg daily. She was given prescriptions for Ringold and ibuprofen as needed for discomfort. Full activity instructions were explained to the patient and family prior to leaving. /[id number]/MODL MTDD
--- NOTE | 2018-08-27 09:45 | ASDISCHSUM ---
Discharge Information Plan Status:Home with No Needs Medically Cleared to Leave:08/27/2018 Discharge Date:08/27/2018 CM D/C Disposition:Home, Routine, Self-Care ADT D/C Disposition:Home, Routine, Self-Care Projected Discharge Date:08/27/2018 Transportation at D/C:Family Discharge Delay Reason: Follow-Up Date:08/27/2018 Discharge Slot: Final Diagnosis: Placement Information Patient Contact Information Contact Name:DANIEL Relationship: Address: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 # of Emergency department Answers: 1-2 visits in the last 6 months Score: 1 Date Signed: 08/27/2018 09:43 AM Electronically Signed By:NAKITA Davalos Case Management Discharge Plan Note Case Management Discharge Discharge Order Complete? Answers: Yes Patient to Obtain Answers: via Family Medications Transportation Arranged Answers: Family/Friends Discharge Comments Notes: Pt is s/p a planned thyroidectomy. She is discharging home today with her and no CM needs. Intervention Information
== END 2018-08-27 10:27 | disposition home or self-care (01) ==
LOC: INTOOBSV 05:34 → F3N 05:34 → F3E 06:46
PROVIDERS: ADMIT Surgery; ATTEND Surgery
PROC: 0GTK0ZZ Resection of Thyroid Gland, Open Approach (ICD-10-PCS; principal; 2018-08-26 07:15)
PROC: 07BM0ZZ Excision of Thymus, Open Approach (ICD-10-PCS; principal; 2018-08-26 07:15)
DX: E05.20 Thyrotoxicosis with toxic multinodular goiter without thyrotoxic crisis or storm (principal)
CPT/HCPCS: J0690; J1100; J1885; J2250; J2405; J2704; J3010